=== PATIENT | female | born 1955 | race Caucasian/White ===

== ENCOUNTER → 2019-09-15 15:25 | Outpatient (CLI) | payer OTHER, SELFPAY ==
--- NOTE | ~2019-09-15 | MR_ITS ---
EXAMINATION: MR lumbar spine wo [facility] EXAM DATE: 09/15/2019 16:05 INDICATION: Low back pain, left leg pain, symptoms 6 months. TECHNIQUE: Multi-sequential, multiplanar MR images of the lumbar spine were obtained without contrast . Sagittal T1, T2, T2 fat saturation images. Axial T2 weighted images. There is no prior study for comparison. FINDINGS: There is mild to moderate disc disease T11-12, L1-2, moderate at L4-5 and L5-S1, mild at th e other visualized levels. The conus medullaris terminates at the L1/2 level and has normal signal in tensity and morphology. There is mild edema with horizontal fracture line identified through the john tral aspect of the L5 vertebral body, compression fracture but difficult to appreciate any significan t loss of vertebral body height at this level. Paraspinal soft tissue is unremarkable. There is 2 mm retrolisthesis L1 on L2, L2 on L3, 3 mm retrolisthesis L3 on L4 and 4 mm retrolisthesis L5 on S1. Level by level evaluation: T12-L1: There is a mild diffuse disc bulge. Facet arthropathy: Minimal. Neural foraminal stenosis: No stenosis. Central canal stenosis: No stenosis. L1-L2: There is a mild diffuse disc bulge. Facet arthropathy: Mild. Neural foraminal stenosis: Mild left. Central canal stenosis: Mild. L2-L3: There is a mild to moderate diffuse disc bulge. Facet arthropathy: Mild to moderate. Neural foraminal stenosis: Moderate left, mild to moderate right. Central canal stenosis: Mild to moderate. L3-L4: There is a mild to moderate diffuse disc bulge. Facet arthropathy: Mild to moderate. Neural foraminal stenosis: Mild to moderate bilateral. Central canal stenosis: Mild to moderate. L4-L5: There is a mild diffuse disc bulge. Facet arthropathy: Mild to moderate. Neural foraminal stenosis: Moderate to severe right, mild to moderate left. Central canal stenosis: Mild. L5-S1: There is a mild to moderate diffuse disc bulge. Facet arthropathy: Mild to moderate. Neural foraminal stenosis: Moderate to severe bilateral. Central canal stenosis: Mild. IMPRESSION: 1. Acute or subacute minimal compression of the L5 vertebral body. 2. Some significant lower lumbar neural foraminal stenosis. Reviewed, dictated and finalized at location A.
== END ==
PROVIDERS: Visit Provider Nurse Practitioner Family
DX: M54.5 Low back pain (principal)
CPT/HCPCS: 72148

== ENCOUNTER 2019-10-22 16:03 | Outpatient (CLI) | payer OTHER, SELFPAY | END 2019-10-22 16:04 | disposition home or self-care (01) | PROVIDERS: PCP Internal Medicine; Visit Provider Internal Medicine | DX: N39.0 Urinary tract infection, site not specified (principal) | CPT/HCPCS: 87086 ==

== ENCOUNTER → 2019-12-10 09:14 | Outpatient (CLI) | payer OTHER, SELFPAY ==
--- NOTE | ~2019-12-10 | DEXA_ITS ---
Bone Density Report Name: Mally Thomas Age: 64 Sex: Female Ethnicity: White Date of : 1955 Indication: monitoring treatment; prior fracture; hysterectomy; postmenopausal Referring Provider: Efren, James Study: Bone densitometry was performed. Exam Date: December 10, 2019 Accession number: [id number] Bone Density: Region BMD T-score Z-score Classification AP Spine (L1-L4) 1.053 0.1 1.7 Normal Femoral Neck (Left) 0.744 -0.9 0.5 Normal Total Hip (Left) 0.921 -0.2 0.9 Normal Femoral Neck (Right) 0.707 -1.3 0.1 Osteopenia Total Hip (Right) 0.927 -0.1 1.0 Normal Total Hip Mean 0.924 -0.2 1.0 Normal World Health Organization criteria for BMD impression classify patients as: Normal (T-score at or above -1.0), Osteopenia (T-score between -1.0 and -2.5), or Osteoporosis (T-score at or below -2.5). 10-year Fracture Risk: FRAX not reported because: Prior hip or vertebral fracture Treated for osteoporosis Previous Exams: Region Exam Age BMD T-score BMD Change BMD Change Date g/cm2 vs Baseline vs Previous AP Spine(L1-L4) 12/10/2019 64 1.053 0.1 0.100* 0.080* 12/22/2016 61 0.972 -0.7 0.020 0.012 08/16/2014 59 0.960 -0.8 0.007 0.007 08/05/2010 55 0.953 -0.9 Total Hip(Left) 12/10/2019 64 0.921 -0.2 0.025 0.000 12/22/2016 61 0.922 -0.2 0.025 -0.014 08/16/2014 59 0.936 -0.1 0.039* 0.039* 08/05/2010 55 0.897 -0.4 Total Hip(Right) 12/10/2019 64 0.927 -0.1 0.018 -0.034* 12/22/2016 61 0.961 0.2 0.051* 0.008 08/16/2014 59 0.953 0.1 0.043* 0.043* 08/05/2010 55 0.910 -0.3 *Denotes significance at 95% confidence level, LSC for AP Spine = 0.022 g/cm2, LSC for Total Hip = 0.027 g/cm2 Clinical Information Provided by Patient: Have had a previous hip or vertebral fracture Has had a low trauma fracture Is being treated for osteoporosis Has used the following medications: HRT (i.e. estrogen/hormone therapy), Vitamin D, Calcium Has the following medical conditions: Hysterectomy Patient maximum height was 62.3 Menopause Age: 47 Drinks caffeinated beverages Onset of menses at age 15 Number of children 1 Impression: The patient has low bone mass, based on the Right Femoral Neck T-score. The patient has risk factors, including: previous fractur
== END ==
PROVIDERS: PCP Internal Medicine; Visit Provider Anesthesiology Pain Medicine
DX: S32.059A Unspecified fracture of fifth lumbar vertebra, initial encounter for closed fracture (principal); X58.XXXA Exposure to other specified factors, initial encounter; M85.851 Other specified disorders of bone density and structure, right thigh
CPT/HCPCS: 77080

== ENCOUNTER → 2020-09-06 12:11 | Outpatient (CLI) | payer OTHER, SELFPAY ==
--- NOTE | ~2020-09-06 | XR_ITS ---
EXAMINATION: XR abdomen/kub 1V INDICATION: Urinary retention TECHNIQUE: Supine views of the abdomen were obtained on 2 radiographs. COMPARISON: None FINDINGS: There is levocurvature of the lumbar spine. Phleboliths are noted in the pelvis. No definit e urolithiasis is identified. There is a moderate volume of colonic stool. Surgical clips in the righ t upper quadrant are likely from prior cholecystectomy. The bowel gas pattern is normal. IMPRESSION: 1. No definite urolithiasis is identified. Consider stone protocol CT if there is concern for urolith iasis. Reviewed, dictated and finalized at location A. IMPRESSION: 1. No definite urolithiasis is identified. Consider stone protocol CT if there is concern for urolithiasis.
== END ==
PROVIDERS: PCP Internal Medicine; Visit Provider Internal Medicine
DX: R10.9 Unspecified abdominal pain (principal)
CPT/HCPCS: 74018

== ENCOUNTER → 2020-09-08 15:38 | Outpatient (CLI) | payer OTHER, SELFPAY ==
--- NOTE | ~2020-09-08 | US_ITS ---
EXAMINATION: US renal BI DATE: 09/08/2020 16:12 INDICATION: Bilateral flank pain, difficulty urinating TECHNIQUE: Multiple grayscale and Doppler ultrasound images of the kidneys were obtained. COMPARISON: None. FINDINGS: The right kidney measures 9.3 x 5.2 x 5.8 cm. The left kidney measures 9.6 x 5.9 x 5.4 cm. The kidneys demonstrate normal parenchymal echogenicity. There is no hydronephrosis. Prevoid bladder volume is 469 cc. Post void bladder volume is 422 cc. IMPRESSION: 1. Normal kidneys without hydronephrosis. 2. Urinary retention. Reviewed, dictated and finalized at location A.
== END ==
PROVIDERS: PCP Internal Medicine; Visit Provider Internal Medicine
DX: R10.9 Unspecified abdominal pain (principal)
CPT/HCPCS: 76775

== ENCOUNTER → 2021-04-11 16:59 | Outpatient (CLI) | payer OTHER, SELFPAY ==
--- NOTE | ~2021-04-11 | MM_ITS ---
EXAMINATION: MM screening shahid BI w drake HISTORY: Screening mammogram TECHNIQUE: Craniocaudal and mediolateral oblique 3-D tomosynthesis images were obtained and synthetic 2-D images were generated. CAD analysis was submitted and interpreted. COMPARISON: 01/28/2019, 12/28/2017, 04/24/2017 bilateral screening mammogram examinations BREAST PARENCHYMAL COMPOSITION: There are scattered areas of fibroglandular density. FINDINGS: Right breast: There is no evidence of suspicious mass, calcification, or architectural distortion to suggest malignancy in the right breast. There has been no suspicious interval change on the right. Left breast: Several left breast masses are suggested, including new approximately 6 mm circumscribed mass in the upper outer quadrant. Diagnostic left mammogram and left breast ultrasound examination a re recommended. IMPRESSION: 1. Left breast new 6 mm mass, upper outer quadrant 2. Diagnostic left mammogram and left breast ultrasound examination are recommended BI-RADS Category 0: Incomplete: Needs additional imaging evaluation. Reviewed, dictated and finalized at location A. STRIAL WASTE INSPECTOR IMPRESSION: 1. Left breast new 6 mm mass, upper outer quadrant 2. Diagnostic left mammogram and left breast ultrasound examination are recomme nded BI-RADS Category 0: Incomplete: Needs additional imaging evaluation.
== END ==
PROVIDERS: PCP Internal Medicine; Visit Provider Internal Medicine
DX: Z12.31 Encounter for screening mammogram for malignant neoplasm of breast (principal); R92.8 Other abnormal and inconclusive findings on diagnostic imaging of breast
CPT/HCPCS: 77063; 77067

== ENCOUNTER 2021-04-21 13:18 | Outpatient (CLI) | payer OTHER, SELFPAY ==
--- NOTE | ~2021-04-21 | MMUS_ITS ---
EXAMINATION: MM diagnostic shahid LT w drake, US breast LT limited HISTORY: Left breast mass on screening mammogram TECHNIQUE: Additional 3-D tomosynthesis images of the left breast were performed and synthetic 2-D im ages were generated. CAD analysis was submitted and interpreted. High resolution limited left breast ultrasound was performed. COMPARISON: 04/11/2021, 01/28/2019, 12/20/2017, 12/22/2016 FINDINGS: MAMMOGRAPHIC FINDINGS: There is an 8 mm oval, obscured, equal density mass in the middle third slightly central, slightly ou ter breast 5.5 cm from the nipple. Additional smaller masses in the middle/posterior third of the john tral breast have a stable appearance with spot compression when compared to prior mammograms. ULTRASOUND: There is a 7 mm cyst at the 12:00 location 6 cm from the nipple. There is a questionable adjacent hyp oechoic mass measuring up to 5 mm. There are round, circumscribed, hypoechoic masses at the 11:00 loc ation 5 cm from the nipple measuring up to 4 mm. IMPRESSION: 1. Probably benign left breast masses. 2. Recommend 6 month follow-up left diagnostic mammogram and ultrasound. BI-RADS category 3, probably benign findings. Reviewed, dictated and finalized at location A. RIFUGE SEPARATOR TENDER IMPRESSION: 1. Probably benign left breast masses. 2. Recommend 6 month follow-up left diagnostic mammogram and ultrasound. BI-RADS category 3, probably benign findings.
== END 2021-04-21 13:19 | disposition home or self-care (01) ==
LOC: ANHIMG 13:22
PROVIDERS: PCP Internal Medicine; Visit Provider Internal Medicine
DX: R92.8 Other abnormal and inconclusive findings on diagnostic imaging of breast (principal)
CPT/HCPCS: 76642; 77061; 77065; G0279

== ENCOUNTER → 2021-06-14 06:58 | Outpatient (CLI) | payer OTHER, SELFPAY ==
--- NOTE | ~2021-06-14 | MR_ITS ---
EXAMINATION: MR thoracic spine wo con DATE: 06/14/2021 07:44 INDICATION: Thoracic back pain. TECHNIQUE: Magnetic resonance imaging (MRI) of the thoracic spine was performed without intravenous c ontrast. Sagittal localizer T1-weighted FSE of the cervical spine was obtained. Thoracic spine sequen annamaria included sagittal T2-weighted FSE, sagittal T1-weighted FSE, sagittal T2-weighted FS FSE, and axi al T2-weighted FSE. COMPARISON: None FINDINGS: There is 19 degrees dextroscoliosis of thoracolumbar spine. Vertebral body heights are norm al. There is severe cervical and lumbar spondylosis. There is mildly decreased disc height from T4-T5 through T6-T7, moderately decreased disc height at T7-T8, mildly decreased disc height at T8-T9 and T9-T10, severely decreased disc height at T11-T12, and mildly decreased disc height at T12-L1. At T6- T7, there is a central protrusion with mild central canal stenosis. At T8-T9, there is a left central extrusion with mild central canal stenosis. At T11-T12 and T12-L1, the discs are bulging with mild c entral canal stenosis. There is multilevel facet joint osteoarthritis, severe bilaterally at C7-T1 an d on the right from T9-T10 through L1-L2 and T12-L1. On the right, there is mild neural foraminal roberto nosis at C7-T1. On the left, there is mild neural foraminal stenosis at C7-T1 and T11-T12. The spinal cord signal intensity is normal. There is a small sliding hiatal hernia. IMPRESSION: 1. Moderate thoracic spondylosis. Severe cervical and lumbar spondylosis. 2. Thoracolumbar dextroscoliosis. Reviewed, dictated and finalized at location B. MECHANIC
== END ==
PROVIDERS: PCP Internal Medicine; Visit Provider Nurse Practitioner Family
DX: M54.6 Pain in thoracic spine (principal); M47.814 Spondylosis without myelopathy or radiculopathy, thoracic region; M47.816 Spondylosis without myelopathy or radiculopathy, lumbar region; M41.85 Other forms of scoliosis, thoracolumbar region
CPT/HCPCS: 72146

== ENCOUNTER → 2021-07-22 09:59 | Outpatient (CLI) | payer OTHER, SELFPAY ==
--- NOTE | ~2021-07-22 | MR_ITS ---
EXAMINATION: MR lumbar spine wo [facility] EXAM DATE: 07/22/2021 10:44 INDICATION: Lumbago, radiculopathy . TECHNIQUE: Multi-sequential, multiplanar MR images of the lumbar spine were obtained without contrast . Sagittal T1, T2, T2 fat saturation images. Axial T2 weighted images. Comparison is made to prior examination from 09/15/2019. FINDINGS: There is moderate to severe disc disease L-1-2, L4-5 and L5-S1. There is 2-3 mm retrolisthe sis L2 on L3 and L3 on L4, 4 mm retrolisthesis L5 on S1. Mild to moderate upper lumbar dextroscoliosi s. There is edema of the L1-2 endplates at the left, concave side of the scoliosis, probably subacute . On prior study there was less scoliosis, less disc disease in the L1 and L2 compressions were not p resent. Paraspinal soft tissue is unremarkable. Level by level evaluation: T12-L1: There is a mild diffuse disc bulge. Facet arthropathy: Mild. Neural foraminal stenosis: No stenosis. Central canal stenosis: No stenosis. L1-L2: There is a large diffuse disc bulge. Superimposed large left central protrusion indenting the conus medullaris and causing moderate central canal stenosis. Facet arthropathy: Mild bilateral. Neural foraminal stenosis: Moderate left. Central canal stenosis: Severe left lateral recess, overall moderate Moderate. Minimal CSF space surr ounding traversing nerve roots. L2-L3: There is a moderate diffuse disc bulge. Facet arthropathy: Mild to moderate. Neural foraminal stenosis: Mild to moderate bilateral. Central canal stenosis: Mild. L3-L4: There is a moderate diffuse disc bulge. Facet arthropathy: Mild to moderate. Neural foraminal stenosis: Mild to moderate bilateral. Central canal stenosis: Mild. L4-L5: There is a mild to moderate diffuse disc bulge. Facet arthropathy: Moderate. Neural foraminal stenosis: Moderate right, mild to moderate left. Central canal stenosis: Mild. L5-S1: There is a mild to moderate diffuse disc bulge. Facet arthropathy: Mild. Neural foraminal stenosis: Moderate bilateral. Central canal stenosis: Mild. IMPRESSION: 1. Significant progression in L1-2 disc disease with large disc bulge and superimposed central protr usion causing severe left lateral recess stenosis and overall moderate central canal stenosis. 2. Dextroscoliosis with development of mild compression fractures at the L1-2 endplates along their concave side. 3. Moderate multilevel neural foraminal stenosis. Reviewed, dictated and finalized at location A. LANE TECHNICIAN IMPRESSION: 1. Significant progression in L1-2 disc disease with large disc bulge and supe rimposed central protrusion causing severe left lateral recess stenosis and ove rall moderate central canal stenosis. 2. Dextroscoliosis with development of mild compression fractures at the L1-2 endplates along their concave side. 3. Moderate multilevel neural foraminal stenosis.
== END ==
PROVIDERS: PCP Internal Medicine; Visit Provider Nurse Practitioner Family
DX: M54.16 Radiculopathy, lumbar region (principal); M51.36 Other intervertebral disc degeneration, lumbar region
CPT/HCPCS: 72148

== ENCOUNTER → 2021-11-16 08:11 | Outpatient (CLI) | payer OTHER, SELFPAY ==
--- NOTE | ~2021-11-16 | MMUS_ITS ---
EXAMINATION: MM diagnostic shahid LT w drake, US breast LT limited HISTORY: Follow-up left breast mass TECHNIQUE: Additional 3-D tomosynthesis images of the left breast were performed and synthetic 2-D im ages were generated. CAD analysis was submitted and interpreted. High resolution Limited left breast ultrasound was performed. COMPARISON: Comparison to multiple prior studies sequentially, with oldest reviewed study dated 12/28. BREAST PARENCHYMAL COMPOSITION: Breast composed of scattered areas of fibroglandular density FINDINGS: MAMMOGRAPHIC FINDINGS: There are no suspicious masses, calcifications or architectural distortion in either breast to sugges t malignancy. ULTRASOUND: Limited left breast ultrasound: At 12:00, 4 cm from the nipple there is an oval hypoechoic mass measu ring 5 mm without posterior features or internal vascularity. Parallel orientation. This mass is not significantly changed from prior examination. At 1:00, 4 cm from the nipple, there is a small cluster of microcysts. At 3:00, 4 cm from the nipple there is a 3 mm cyst. IMPRESSION: 1. Probable benign left breast mass at 12:00, 4 cm from the nipple. 2. Recommend 6 month follow-up left breast ultrasound and bilateral mammogram. BI-RADS category 3, probably benign findings. Reviewed, dictated and finalized at location A. IMPRESSION: 1. Probable benign left breast mass at 12:00, 4 cm from the nipple. 2. Recommend 6 month follow-up left breast ultrasound and bilateral mammogram. BI-RADS category 3, probably benign findings.
== END ==
PROVIDERS: PCP Internal Medicine; Visit Provider Internal Medicine
DX: R92.8 Other abnormal and inconclusive findings on diagnostic imaging of breast (principal)
CPT/HCPCS: 76642; 77061; 77065; G0279

== ENCOUNTER 2022-07-12 13:59 | Outpatient (CLI) | payer OTHER, SELFPAY ==
--- NOTE | ~2022-07-12 | MMUS_ITS ---
EXAMINATION: MM diagnostic shahid BI w drake, US breast LT limited HISTORY: Six-month follow-up of probable benign left breast mass at 12:00 4 cm from nipple TECHNIQUE: ML, MLO and CC 3-D tomosynthesis images of were performed and synthetic 2-D images were ge nerated. CAD analysis was submitted and interpreted. High resolution targeted left 12:00 breast ultra sound was performed. COMPARISON: 11/16/2021 diagnostic left mammogram and limited left breast ultrasound 04/21/2021 diagnostic left mammogram and limited left breast ultrasound 04/11/2021 bilateral screening mammogram BREAST PARENCHYMAL COMPOSITION: There are scattered areas of fibroglandular density. FINDINGS: MAMMOGRAPHIC FINDINGS: No suspicious mass or architectural distortion, malignant calcification, skin thickening or retractio n or significant new or developing density is detected. ULTRASOUND: 12:00 4 cm from nipple: 2.7 x 4 x 4.7 mm parallel circumscribed hypoechoic lesion without internal va scularity or posterior shadowing is again noted. The sonographic features suggest benign process. Ano ther six-month targeted left breast ultrasound follow-up is recommended. IMPRESSION: 1. Probable benign finding at 12:00 4 cm from nipple 2. Targeted 6 month left breast 12:00 ultrasound follow-up for 7 minutes from nipple is recommended BI-RADS category 3, probably benign findings. Reviewed, dictated and finalized at location A. IDE B2B SALES IMPRESSION: 1. Probable benign finding at 12:00 4 cm from nipple 2. Targeted 6 month left breast 12:00 ultrasound follow-up for 7 minutes from n ipple is recommended BI-RADS category 3, probably benign findings.
== END 2022-07-12 14:00 | disposition home or self-care (01) ==
LOC: ANHIMG 14:03
PROVIDERS: PCP Internal Medicine; Visit Provider Internal Medicine
DX: N63.20 Unspecified lump in the left breast, unspecified quadrant (principal)
CPT/HCPCS: 76642; 77062; 77066; G0279

== ENCOUNTER 2022-11-20 14:25 | Outpatient (CLI) | payer OTHER, SELFPAY ==
--- NOTE | ~2022-11-20 | DEXA_ITS ---
Bone Density Report Name: ANGELA HICKS Age: 67 Sex: Female Ethnicity: White Date of : 1955 Indication: postmenopausal; screening for osteoporosis; height loss; asthma or emphysema; hysterectomy; Referring Provider: NYA PRASAD Study: Bone densitometry was performed. Exam Date: November 20, 2022 Accession number: [id number] Bone Density: Region BMD T-score Z-score Classification AP Spine(L3, L4) 1.182 0.7 2.7 Normal Femoral Neck (Left) 0.763 -0.8 0.8 Normal Total Hip (Left) 0.902 -0.3 0.9 Normal Femoral Neck (Right) 0.731 -1.1 0.5 Osteopenia Total Hip (Right) 0.914 -0.2 1.0 Normal Total Hip Mean 0.908 -0.3 1.0 Normal World Health Organization criteria for BMD impression classify patients as: Normal (T-score at or above -1.0), Osteopenia (T-score between -1.0 and -2.5), or Osteoporosis (T-score at or below -2.5). 10-year Fracture Risk(1): Major Osteoporotic Fracture 8.0% Hip Fracture 0.6% Reported Risk Factors: [place] (), Neck BMD=0.731, BMI=31.4 (1) FRAX(R) Version 3.08. Fracture probability calculated for an untreated patient. Fracture probability may be lower if the patient has received treatment. Clinical Information Provided by Patient: Has used the following medications: Vitamin D, Calcium Has the following medical conditions: Asthma or Emphysema, Hysterectomy Patient maximum height was 63 Menopause Age: 56 Drinks caffeinated beverages Onset of menses at age 15 Number of children 1 Impression: The patient has low bone mass, based on the Right Femoral Neck T-score. The patient has an estimated ten-year risk of hip fracture of 0.6% and an estimated ten-year risk of major fracture of 8%, based on the WHO FRAX algorithm. Discussion: BONE DENSITY IS LOW AT ONE OR MORE SKELETAL SITES. This patient's lowest T-score is low at one or more skeletal sites. It meets the World Health Organization's (WHO) criteria for ?low bone mass? (T-score between -1.0 and -2.5). The patient's 10-year risk of fracture as calculated by FRAX is less than the threshold where pharmacological therapy is recommended by the National Osteoporosis Foundation (NOF). However, all treatment decisions require clinical judgment and consideration of individual patient factors, including patient preferences, comorbidities, previous drug use, risk factors not captured in the FRAX model (e.g., frailty, falls, vitamin D deficiency, increased bone turnover, interval significant decline in bone density) and possible under or overestimation of fracture risk by FRAX. The patient should follow a healthful lifestyle (good nutrition with adequate calcium and vitamin D, and appropriate weight-bearing exercise). Follow-Up: Consider repeating this study in 2 to 3 years to reassess this patient's status, o
== END 2022-11-20 14:26 | disposition home or self-care (01) ==
PROVIDERS: PCP Nurse Practitioner Family; Visit Provider Nurse Practitioner Family
DX: Z13.820 Encounter for screening for osteoporosis (principal); M85.851 Other specified disorders of bone density and structure, right thigh
CPT/HCPCS: 77080

== ENCOUNTER 2022-12-19 10:35 | Outpatient (CLI) | payer OTHER, SELFPAY ==
--- NOTE | ~2022-12-19 | US_ITS ---
Renal-Bladder ultrasound Clinical History: Urinary retention Technique: Real-time sonographic imaging of the kidneys and urinary bladder was performed. Findings: The right kidney measures 9.7 cm in length and the left kidney measures 10.9 cm. There is n o hydronephrosis or renal calculus identified. Renal cortical echogenicity is within normal limits. N o renal mass lesion is identified. The urinary bladder is moderately distended at the time of this exam. No intraluminal echoes are iden tified. No abnormal wall thickening is seen. Prevoid urinary bladder volume is 304 mL. Post void resi dual of 4 mL noted. Impression: Unremarkable ultrasound of the kidneys and urinary bladder. Reviewed, dictated and finalized at location M. Impression: Unremarkable ultrasound of the kidneys and urinary bladder.
--- NOTE | ~2022-12-19 | XR_ITS ---
Supine and upright views of the abdomen Clinical history: Urinary retention COMPARISON: 09/06/2020 Findings: Bowel gas pattern is nonspecific. No evidence for obstruction or free air. No abnormal mass lesion or calcification is seen. 32 degrees dextroscoliosis of the thoracolumbar spine present, apex at L1-L2. Impression: No significant soft tissue abnormality is seen. 32 degrees dextroscoliosis of the thoracolumbar spine. Reviewed, dictated and finalized at location . Impression: No significant soft tissue abnormality is seen. 32 degrees dextroscoliosis of the thoracolumbar spine.
== END 2022-12-19 10:36 | disposition home or self-care (01) ==
LOC: ANHIMG 10:40
PROVIDERS: PCP Family Medicine; Visit Provider Nurse Practitioner Family
DX: R33.9 Retention of urine, unspecified (principal)
CPT/HCPCS: 74018; 76775

== ENCOUNTER → 2023-01-17 07:40 | Outpatient (CLI) | payer OTHER, SELFPAY ==
--- NOTE | ~2023-01-17 | US_ITS ---
US breast LT limited 01/17/2023 08:04 Indication: Follow-up left breast masses Procedure: High-resolution Limited ultrasound of the left breast Comparison: Comparison to multiple prior studies sequentially, with oldest reviewed study dated 04/03. Findings: At 11-12:00 position, 4 cm from the nipple, there is an oval hypoechoic mass measuring 5 mm with low-level internal echoes. Also at 11-12:00 there is a hypoechoic mass with internal echogenici ty measuring 4 mm with enhanced or transmission parallel orientation. No internal vascularity in eith er mass. Given the lack of interval change these are most likely benign. Impression: 1: Probable benign left breast masses. BI-RADS CATEGORY 3-PROBABLY BENIGN FINDING RECOMMENDATION: Six-month follow-up diagnostic bilateral mammogram and Limited left breast ultrasound . Reviewed, dictated and finalized at location A. Impression: 1: Probable benign left breast masses. BI-RADS CATEGORY 3-PROBABLY BENIGN FINDING RECOMMENDATION: Six-month follow-up diagnostic bilateral mammogram and Limited left breast ultrasound.
== END ==
PROVIDERS: PCP Nurse Practitioner Family; Visit Provider Nurse Practitioner Family
DX: R92.8 Other abnormal and inconclusive findings on diagnostic imaging of breast (principal)
CPT/HCPCS: 76642

== ENCOUNTER 2023-06-11 06:57 | Outpatient (CLI) | payer OTHER, SELFPAY ==
--- NOTE | ~2023-06-11 | MR_ITS ---
MRI of the thoracic spine Clinical History: Radiculopathy Technique: Axial T2-weighted and gradient images, and sagittal T1-weighted, T2-weighted, and STIR jose alfredo ges were acquired. Findings: There is no fracture or subluxation of the thoracic spine. Vertebral bodies maintain normal height and line. No suspicious bone marrow signal abnormality seen. No significant disc bulge or herniation seen at any thoracic level. No spinal canal stenosis or cord compression. There is moderate to advanced facet arthropathy from T9-T10 through the remainder of the lower thoracic spine. No abnormal signal seen in the spinal cord. Paravertebral soft tissues are unremarkable. Impression: Facet arthropathy at the lower thoracic spine, otherwise no significant abnormality seen. Reviewed, dictated and finalized at [facility]. L PLATE PRINTER Impression: Facet arthropathy at the lower thoracic spine, otherwise no significant abnorma lity seen.
--- NOTE | ~2023-06-11 | MR_ITS ---
MRI of the lumbar spine Clinical History: Radiculopathy Technique: Axial T2-weighted images, and sagittal T1-weighted, T2-weighted, and and T2 fat-sat images were acquired. COMPARISON: 07/22/2021 Findings: No fracture identified. There is minimal grade 1 retrolisthesis of L1 over L2, and L2 over L3. There is extensive reactive marrow edema about the L1-L2 and L4-L5 disc spaces due to underlying degenerative disc disease. At L1-L2, there is advanced degenerative disc narrowing with mild disc bulge and mild facet arthropat hy. No central canal stenosis. There is severe left neural foraminal narrowing. Right neural foramen preserved. At L2-L3, there is diffuse disc bulge with mild to moderate facet arthropathy. No central canal steno sis. There is severe left neural foraminal narrowing, and moderate right neural foraminal narrowing. L3-L4, there is diffuse disc bulge and moderate facet arthropathy. There is right lateral recess sten osis, with severe right neural foraminal narrowing. Left neural foramen preserved. No central canal s tenosis. At L4-L5, there is minimal disc bulge with moderate facet arthropathy. No central canal stenosis. The re is mild to moderate left neural foraminal narrowing, and severe right neural foraminal narrowing. At L5-S1, there is severe disc narrowing, with moderate to advanced facet arthropathy. No central can al stenosis. There is severe bilateral neural foraminal narrowing. Paravertebral soft tissues are unremarkable. Impression: Advanced degenerative spondylosis, as detailed above, with multilevel significant neural foraminal na rrowing. Reviewed, dictated and finalized at [facility]. IAC CARE NURSE Impression: Advanced degenerative spondylosis, as detailed above, with multilevel significa nt neural foraminal narrowing.
== END 2023-06-11 06:58 ==
PROVIDERS: PCP Family Medicine; Visit Provider Nurse Practitioner Family
DX: M47.26 Other spondylosis with radiculopathy, lumbar region (principal); M47.24 Other spondylosis with radiculopathy, thoracic region
CPT/HCPCS: 72146; 72148

== ENCOUNTER 2023-11-11 10:39 | Outpatient (CLI) | payer OTHER, SELFPAY ==
--- NOTE | 2023-11-11 11:00 | ECG_ITS ---
Test Date: 2023-11-11 11:07:50 Measurements Intervals [place] Rate: 70 P: 35 DE: 170 QRS: -1 QRSD: 77 T: 16 QT: 388 QTc: 421 Interpretive Statements SINUS RHYTHM LOW QRS VOLTAGE IN PRECORDIAL LEADS [QRS DEFLECTION < 1.0 mV IN CHEST LEADS] POOR R-WAVE PROGRESSION BORDERLINE ECG No previous ECG available for comparison Electronically Signed On 11-11-2023 13:07:23 CDT by Maxi Beal M.D.
[2023-11-11 12:35] LABS: Basophils Percent Auto 0.3 % (0.2-1.2); Eosinophils Absolute Auto 0.1 K/mm3 (0-0.3); Eosinophils Percent Auto 1.4 % (0-4.4); Hemoglobin 13.9 g/dL (12.0-15.0); Immature Granulocyte Absolute 0.03 K/mm3 (0.00-0.031); Immature Granulocyte Percent A 0.4 % (0-0.5); Lymphocytes Absolute Auto 2.42 K/mm3 (0.9-3.2); Lymphocytes Percent Auto 30.3 % (18.3-44.2); Mean Corpuscular HGB Conc 34.8 g/dl (32-36); Mean Corpuscular Hemoglobin 31.7 pg (26-34); Mean Corpuscular Volume 91.1 fl (80-100); Mean Platelet Volume 9.6 fl (7.4-10.4); Monocytes Absolute Auto 0.6 K/mm3 (0.1-0.6); Monocytes Percent Auto 7.9 % (2.6-8.5); Neutrophils Absolute Auto 4.8 K/mm3 (1.3-6.7); Neutrophils Percent Auto 59.7 % (45.5-73.1); Platelet Count Result 168 k/mm3 (150-375); Red Blood Count 4.39 M/mm3 (4.2-5.4); Red Cell Distribution Width 12.8 % (11.5-14.5)
[2023-11-11 12:36] LABS: Appearance Urine Cloudy (Clear); Bacteria Urine 3+ /hpf; Bilirubin Urine Negative (Negative); Blood Urine Negative (Negative); Color Urine Yellow (Yellow); Glucose Urine UA Negative (Negative); Ketones Urine Negative (Negative); Leukocyte Esterase Ur 2+ LEU/UL (Negative); Nitrate Urine Negative (Negative); Protein Urine Negative (Negative); Specific Grav Ur 1.009 (1.001-1.035); Squamous Epithelial Cell Urine Moderate /hpf (Few); Urobilinogen Urine 0.2 mg/dL (<2.0); pH Urine 7.5 (5.0-9.0)
[2023-11-11 12:47] LABS: Add Urine Microscopic? YES
[2023-11-11 12:52] LABS: Alanine Aminotransferase 65 U/L (6-35); Alkaline Phosphatase 69 U/L (38-126); Aspartate Amino Transferase 57 U/L (14-36); Bilirubin,Total 0.6 mg/dL (0.2-1.3)
[2023-11-11 12:56] LABS: Alanine Aminotransferase 65 U/L (6-35); Alkaline Phosphatase 70 U/L (38-126); Anion Gap 4 mmol/L (4-12); Aspartate Amino Transferase 55 U/L (14-36); Bilirubin,Total 0.6 mg/dL (0.2-1.3); Blood Urea Nitrogen 9 mg/dL (7-17); CRP < 0.5 mg/dL (<1.0); Calcium 8.8 mg/dL (8.4-10.2); Carbon Dioxide 30 mmol/L (22-30); Chloride 103 mmol/L (98-107); Estimated Glomerular Filt Rate > 60; Glucose 82 mg/dL (65-110); Potassium 3.3 mmol/L (3.4-5.0); Sodium 137 mmol/L (137-145)
[2023-11-11 13:22] LABS: Hepatitis B Surface Antigen Negative (Negative)
[2023-11-11 13:28] LABS: HAV RESULT Negative (Negative); Hepatitis B Core IgM Result Negative (Negative)
[2023-11-11 13:37] LABS: Erythrocyte Sedimentation Rate 35 mm/hr (0-20)
[2023-11-11 13:39] LABS: Hepatitis C Virus Antibody Negative (Negative)
== END 2023-11-11 10:40 | disposition home or self-care (01) ==
PROVIDERS: PCP Family Medicine; Referring Provider Nurse Practitioner Family; Visit Provider Nurse Practitioner Family
DX: R74.8 Abnormal levels of other serum enzymes (principal); Z01.818 Encounter for other preprocedural examination; R94.31 Abnormal electrocardiogram [ECG] [EKG]
CPT/HCPCS: 36415; 80053; 80074; 80076; 81001; 85025; 85652; 86140; 87086; 93005

== ENCOUNTER 2024-11-04 12:20 | Outpatient (CLI) | payer OTHER, SELFPAY ==
--- OUTSIDE RECORDS SUMMARY | 2024-11-04 12:28 | XMS_ITS | Referral Summary ---
Author Organization [facility] Address [address] [place] [address] Care Team Providers Care Waterproof Bag Sewer Name Role Phone LutherOrvilleparvin GERONIMO Primary Care Provider [phone] Lino Pabon MD Unavailable [phone] Maryam Grey MD Unavailable Allergies Active Allergy Reactions Criticality Noted Date Comments No Known Allergies Other (See comments) Low Reaction: Medications calcium carbonate-vitam in D3 1,500 mg (600mg elemental) -800 unit per tablet Acti ve cholestyramine (QUESTRAN) 4 gram packet 8 Active estradiol (ESTRACE) 1 mg tablet 8 Active loperamide (IMODIUM A-D) 2 mg capsule as needed Active levothyroxine (SYNTHROID) 75 mcg tablet fishing tool technician oil well before breakfast 8 Active losartan-hydroC HLOROthiazide (HYZAAR) 50-12.5 mg per tablet 8 Active oxyCODONE-aceta minophen (PERCOCET) 10-325 mg per tabletIndicatio ns:Pain every 6 (six) hours as needed 8 Active atorvastatin (LIPITOR) 40 mg tablet Take 40 mg by mouth daily 1 Active cholecalciferol (VITAMIN D-3) 50,000 unit capsule Take 50,000 Units by mouth once a week Active omeprazole magnesium (PRILOSEC ORAL) Take by mouth daily Active L gasseri/B bifidum/B longum ([employer] HEALTH ORAL) Take by mouth daily Active amitriptyline (ELAVIL) 25 mg tablet daily 1 Active topiramate (TOPAMAX) 25 mg tablet Take 25 mg by mouth 2 (two) times a day Active nortriptyline (PAMELOR) 25 mg capsule Take 25 mg by mouth daily Active gabapentin (NEURONTIN) 600 mg tablet Take 600 mg by mouth 3 (three) times a day Active Active Problems Problem Noted Date Diagnosed Date Functional diarrhea 12/22/2020 Osteoarthritis of glenohumeral joint 08/15/2015 Pain in shoulder 10/29/2014 Social History Tobacco Use Types Packs/Day Years Used Date Smoking Tobacco: Never Alcohol Use Standard Drinks/Week Comments Yes 0 (1 standard drink = 0.6 oz pur e alcohol) Comments Unknown Sex and Gender Information Value Date Recorded Sex Assigned at Not on file 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 Gender Identity Not on file Sexual Orientation Not on file Last Filed Vital Signs Vital Sign Reading Time Taken Comments Blood Pressure 137/85 12/22/2020 2:25 PM CDT Pulse 92 12/22/2020 2:25 PM CDT Temperature 36.3 C (97.3 F) 12/22/2020 2:25 PM CDT Respiratory Rate - - Oxygen Saturation 95% 12/22/2020 2:25 PM CDT Inhaled Oxygen Concentration - - Weight 78.9 kg (174 lb) 12/22/2020 2:25 PM CDT Height 157.5 cm (5' 2) 12/22/2020 2:25 PM CDT Body Mass Index 31.83 12/22/2020 2:25 PM CDT Plan of Treatment Not on file Insurance CHOICE PLUS Care Teams Waterproof Bag Sewer Relationship Specialty Start Date End Date Gui Sloan DO PCP - General Internal Medicine 10/17/20 Lino Pabon MD [id number] [place] [address] Surgeon Colon and Rectal Surgery 02/09/21 Maryam Grey MD [id number] [place] [address] Semiconductor Wafers Saw Operator Gastroenterology 02/09/21
--- OUTSIDE RECORDS SUMMARY | 2024-11-04 12:28 | XMS_ITS | Clinical Summary ---
Author Organization [employer] [address] Address [address] [place] [address] Care Team Providers Care Core Stripper Name Role Phone Gui Sloan Primary Care Provider [phone] Allergies No known active allergies Medications losartan-hydroCH LOROthiazide (HYZAAR) 50-12.5 mg tablet Take 1 Tablet by mouth daily. Active levothyroxine 88 mcg tablet Take 88 mcg by mouth daily lithographic stripper. Active oxyCODONE-acetam inophen (PERCOCET) 10-325 mg Tablet Take 1 Tablet by mouth every 4 hours as needed for Pain, Severe. Active ergocalciferol (VITAMIN D2) 50,000 unit capsule Take 50,000 Units by mouth. Active estradioL (ESTRACE) 1 mg tablet Take 1 mg by mouth daily. Active pravastatin (PRAVACHOL) 20 mg tablet Take 20 mg by mouth daily with supper. Active gabapentin (NEURONTIN) 600 mg tablet Take 600 mg by mouth 3 times daily. Active topiramate (TOPAMAX) 25 mg tablet Take 25 mg by mouth 2 times daily. Active nortriptyline (PAMELOR) 25 mg capsule Take 25 mg by mouth daily at bedtime. Active loperamide (IMODIUM) 2 mg capsule Take 2 mg by mouth every 3 hours as needed for Diarrhea/Lo ose Stools. Active L gasseri/B bifidum/B longum ([employer] HEALTH ORAL) Take by mouth. Active calcium as carbonate (CALTRATE) 1,500 mg (600 mg elemental) Tablet Take by mouth. Active Active Problems Problem Noted Date Diagnosed Date Lumbar spondylosis 02/16/2020 Family History Relation Name Status Comments Father Mother Social History Tobacco Use Types Packs/Day Years Used Date Smoking Tobacco: Never Alcohol Use Standard Drinks/Week Comments Yes 0 (1 standard drink = 0.6 oz pur e alcohol) Comments Unknown Sex and Gender Information Value Date Recorded Sex Assigned at Not on file Legal Sex Female 11:27 AM CDT Gender Identity Not on file Sexual Orientation Not on file Last Filed Vital Signs Vital Sign Reading Time Taken Comments Blood Pressure - - Pulse - - Temperature 36.9 C (98.4 F) 02/16/2020 1:42 PM CDT Respiratory Rate - - Oxygen Saturation - - Inhaled Oxygen Concentration - - Weight 77.1 kg (170 lb) 02/16/2020 1:42 PM CDT Height 157.5 cm (5' 2) 02/16/2020 1:42 PM CDT Body Mass Index 31.09 02/16/2020 1:42 PM CDT Plan of Treatment Health Maintenance Due Date Last Done Comments DTAP/TDAP/TD VACCINES (1 - Tdap) 01/02/1976 BREAST CANCER SCREENING 1997 COLORECTAL SCREENING 2002 Colorectal Cancer Screening 2002 FIT-DNA Q 3 years 2002 FIT/FOBT Q 1 year 2002 Flex Sig/CT Colonography Q 5 years 2002 PNEUMOCOCCAL VACCINE 50+ YEARS (1 of 1 - PCV) 01/02/20 07 ZOSTER VACCINE (1 of 2) 2007 INFLUENZA VACCINE (#1) 2024 OSTEOPOROSIS SCREENING 01/20/2025 01/21/2020 RSV VACCINE (60+ or ) (1 - 1-dose 75+ series) 01/02/2032 Procedures Procedure Name Priority Date/Time Associated Diagnosis Comments DEXA PRIOR STUDY Routine 01/21/2020 4:23 PM CDT DDD (degenerative disc disease), lumbar from Last 3 Months or Most Recently Relevant to Health Maintenance Results * DEXA PRIOR STUDY (01/21/2020 4:23 PM CDT) Narrative 01/21/2020 4:23 PM CDT This exam was auto finalized to allow images to be scanned to PACS. us External Provider [facility] DIAGNOSTIC IMAGING ORDERA BLES Final Result from Last 3 Months or Most Recently Relevant to Health Maintenance Insurance Care Teams Core Stripper Relationship Specialty Start Date End Date Gui Sloan DO [address] [place] [id number] PCP - General Internal Medicine 01/08/20
--- OUTSIDE RECORDS SUMMARY | 2024-11-04 12:28 | XMS_ITS | Clinical Summary ---
Author Organization [facility] Address [address] [place] [address] Care Team Providers Care Under Ground Miner Name Role Phone LutherGui Primary Care Provider [phone] Lino Pabon MD Unavailable [phone] Maryam Grey MD Unavailable Allergies Active Allergy Reactions Criticality Noted Date Comments No Known Allergies Other (See comments) Low Reaction: Medications calcium carbonate-vitam in D3 1,500 mg (600mg elemental) -800 unit per tablet Acti ve cholestyramine (QUESTRAN) 4 gram packet 8 Active estradiol (ESTRACE) 1 mg tablet 8 Active loperamide (IMODIUM A-D) 2 mg capsule as needed Active levothyroxine (SYNTHROID) 75 mcg tablet standards engineer before breakfast 8 Active losartan-hydroC HLOROthiazide (HYZAAR) [...] mouth daily Active L gasseri/B bifidum/B longum ([employer] HEALTH ORAL) Take by mouth daily Active [...] glenohumeral joint 08/15/2015 Pain in shoulder 10/29/2014 Surgical History Surgery Date Site/Laterality Comments SHOULDER ARTHROSCOPY 06/03/2007 - 06/02/2008 Right Arthroscopy shoulder HYSTERECTOMY 06/03/2010 - 06/02/2011 Hysterectomy CHOLECYSTECTOMY 06/14/2003 COLONOSCOPY 07/14/2020 Medical History Medical History Date Comments Hx Other Medical 2011 tumor removed Gastroesophageal reflux disease GERD Hypertension Hypertension Asthma Thyroid disease Family History Medical History Relation Name Comments Cancer Brother Diabetes Other 1 Family history of Diabetes mellitus; Hypertension Other 2 Family history of Hypertension; Osteoarthritis Other 3 Family histor y of Osteoarthritis; Cancer Sister Relation Name Status Comments Brother Other 1 Other 2 Other 3 Sister Social History Tobacco Use Types Packs/Day Years Used Date Smoking Tobacco: Never Alcohol Use Standard Drinks/Week Comments Yes 0 (1 standard drink = 0.6 oz pur e alcohol) Comments Unknown Sex and Gender Information Value Date Recorded Sex Assigned at Not on file 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
--- OUTSIDE RECORDS SUMMARY | 2024-11-04 12:28 | XMS_ITS | CONTINUITY OF CARE DOCUMENT ---
Author Name hanny gamino Address Unknown Organization [facility] Address [address] [place] [address] [address] [place] [address] Phone [phone] Care Team Providers Care Scalehouse Attendant Name Role Phone MAICO SYKES MD Unavailable [phone] INSURANCE PROVIDERS Payer name Policy type / Coverage type [facility] green party ID [facility] Other [id number]
--- OUTSIDE RECORDS SUMMARY | 2024-11-04 12:28 | XMS_ITS | Continuity of Care Document ---
Author Organization [facility] Address [address] [place] [address] [address] [place] [address] Phone Care Team Providers Care Automotive Sales Professional Name Role Phone Luis Lynch Unavailable Unavailable Advance Directives Directive Yes / No Effective Date File Name No Information Encounters Encounter Description Practice Location Reason(s) For Visit Diagnoses Date Provider Providers Copied on Encounter [facility], [address] [place] [address] [address], [place], [place], [id number], [place] tel:[phone] [facility] No Information 0 [phone] Doisy Luis. [address] [facility] , [address], [place], [address], [place]. tel:[phone] Family History Family Member Type Diagnosis Age At Onset No Information Payers Payer name Insurance type Covered green party ID Authoriza tion(s) No Information Social History Type Description Quantity Date Captured Comments Sex Female Smoking Status No Information Chief Complaint And Reason For Visit No Information Reason For Referral Reason For Referral No Information History Of Present Illness Encounter Date Complaint History Of Prese nt Illness No Information Functional Status Date Functional Assessmen t No Information Instructions Date Instruction Additional Infor mation No Information Assessments Type Assessment Date No Information Patient Care Teams Name Effective Dates (start - stop) Status Members No Information
[2024-11-04 15:06] LABS: Anion Gap 6 mmol/L (4-12); Blood Urea Nitrogen 13 mg/dL (7-17); Calcium 9.5 mg/dL (8.4-10.2); Carbon Dioxide 32 mmol/L (22-30); Chloride 102 mmol/L (98-107); Estimated Glomerular Filt Rate > 60; Glucose 78 mg/dL (65-110); Potassium 3.4 mmol/L (3.4-5.0); Sodium 140 mmol/L (137-145)
== END 2024-11-04 12:21 | disposition home or self-care (01) ==
LOC: ANHSURGERY 12:25
PROVIDERS: Anesthesiology; PCP Nurse Practitioner Family; Visit Provider Surgery
DX: Z51.81 Encounter for therapeutic drug level monitoring (principal); Z79.899 Other long term (current) drug therapy
CPT/HCPCS: 36415; 80048

== ENCOUNTER 2024-11-09 02:23 | Day surgery (SDC) | payer OTHER, SELFPAY ==
[2024-10-27 15:30] VITALS: BMI 29.4
--- NOTE | 2024-10-27 16:00 | PC.NURSE ---
Report to the Outpatient Waiting Room, entrance under the green pavilion located off [facility], at time ___12:00PM____ on date ___11/09/24____. Planned Procedure Time: ___2:00PM .? Time changes happen often and if your time is changed the preop area will call you the afternoon before. - You and your visitor will be asked to self-screen and do not enter if you have any COVID symptoms. Please call surgeon if you need to reschedule. - A mask is optional within the hospital at this time. Patients may have clear liquids (water, carbonated beverages, clear teas, apple juice) until 3 hours prior to surgery (11:00AM) with a maximum of 20 ounces. - No food from midnight until time of surgery and no smoking, or chewing tobacco (or any form of nicotine). No chewing gum, candy or mints. Take only the following medications with a SIP of water on the morning of surgery: __LEVOTHYROXINE, GABAPENTIN, MORPHINE DO NOT STOP ANY OF YOUR OTHER PRESCRIPTION MEDICATIONS PRIOR TO SURGERY EXCEPT THE FOLLOWING Hold all vitamins and supplements for 3 days per anesthesiologist.LAST DOSE 11/05/24. Please no make-up, nail libyan, hairspray, perfume, deodorant, or body powder the day of surgery.? No jewelry (including any body piercings) or valuables the day of surgery, leave them at home.? Please take a shower or bath the night before, or the morning of, surgery with an antibacterial soap.? Wear comfortable, loose fitting clothing.? - Jewelry must be removed prior to entering the operating room.? Rings and piercings that are not removed may be cut off. - The hospital will not accept responsibility for valuables.? - Please leave all valuables, including medications, at home the day of surgery. If you are going home after surgery, a licensed frontload driver must drive you home.? - NO public transportation without another adult if you receive anesthesia. - We recommend that an adult stay with you for 24 hours following discharge. - We also recommend that you do not drive, make important decision, drink alcoholic beverages, or take any drugs that were not prescribed by your health care provider for at least 24 hours after your discharge time. Follow any additional instructions given to you from your surgeon. Telephone instructions given to ___PATIENT and asked if any additional questions and then verbalized understanding. Patient advised to call surgeon office or pre surgery nurse liaison [phone] if any additional questions.
--- OUTSIDE RECORDS SUMMARY | 2024-11-09 02:26 | XMS_ITS | Referral Summary ---
Author Organization [facility] Address [address] [place] [address] Care Team Providers Care Tank Hoop Bender Name Role Phone LutherOrvilleparvin GERONIMO Primary Care Provider [phone] Lino Pabon MD Unavailable [phone] Maryam Grey MD Unavailable [phone] Allergies Active Allergy Reactions Criticality Noted Date Comments No Known Allergies Other (See comments) Low Reaction: Medications calcium carbonate-vitam in D3 1,500 mg (600mg elemental) -800 unit per tablet Acti ve cholestyramine (QUESTRAN) 4 gram packet 8 Active estradiol (ESTRACE) 1 mg tablet 8 Active loperamide (IMODIUM A-D) 2 mg capsule as needed Active levothyroxine (SYNTHROID) 75 mcg tablet speech therapist early intervention before breakfast 8 Active losartan-hydroC HLOROthiazide (HYZAAR) [...] mouth daily Active L gasseri/B bifidum/B longum ([employer] HEALTH ORAL) Take by mouth daily Active [...] on file 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
--- OUTSIDE RECORDS SUMMARY | 2024-11-09 02:26 | XMS_ITS | Continuity of Care Document ---
Author Organization [facility] Address [address] [place] [address] [address] [place] [address] Phone Care Team Providers Care Pinsetter Mechanic Helper Name Role Phone Luis Lynch Unavailable Unavailable Advance Directives Directive Yes / No Effective Date File Name No Information Encounters Encounter Description Practice Location Reason(s) For Visit Diagnoses Date Provider Providers Copied on Encounter [facility], [address] [place] [address] [address], [place], [place], [id number], [place] tel:[phone] [facility] No Information 0 6-200 6 Doisy Luis. [address] [facility] , [address], [place], [address], [place]. tel:[phone] Family History Family Member Type Diagnosis Age [...]
--- OUTSIDE RECORDS SUMMARY | 2024-11-09 02:26 | XMS_ITS | Clinical Summary ---
Author Organization [employer] [address] Address [address] [place] [address] Care Team Providers Care Bobbin Stripper Name Role Phone Gui Sloan Primary Care Provider Allergies No known active allergies Medications losartan-hydroCH LOROthiazide (HYZAAR) 50-12.5 mg tablet Take 1 Tablet by mouth daily. Active levothyroxine 88 mcg tablet Take 88 mcg by mouth daily tie puller. Active oxyCODONE-acetam inophen (PERCOCET) 10-325 mg Tablet [...] ose Stools. Active L gasseri/B bifidum/B longum ([employer] HEALTH ORAL) Take by mouth. Active calcium [...] be scanned to PACS. us External Provider [facility] DIAGNOSTIC IMAGING ORDERA BLES Final Result from Last 3 Months or Most Recently Relevant to Health Maintenance Insurance Care Teams Bobbin Stripper Relationship Specialty Start Date End Date Gui Sloan DO [address] [facility] [address] [place] [phone] PCP - General Internal Medicine 01/08/20
--- OUTSIDE RECORDS SUMMARY | 2024-11-09 02:26 | XMS_ITS | CONTINUITY OF CARE DOCUMENT ---
Author Name hanny gamino Address Unknown Organization [facility] Address [address] [place] [address] [address] [place] [address] Phone [phone] Care Team Providers Care Kitchen Operator Name Role Phone MAICO SYKES MD Unavailable INSURANCE PROVIDERS Payer name Policy type / Coverage type [facility] libertarian ID [facility] Other [id number]
--- OUTSIDE RECORDS SUMMARY | 2024-11-09 02:26 | XMS_ITS | Clinical Summary ---
Author Organization [facility] Address [address] [place] [address] Care Team Providers Care Student Development Specialist Name Role Phone LutherGui mcclelland Primary Care Provider [phone] Lino Pabon MD Unavailable [phone] Maryam Grey MD Unavailable Allergies Active Allergy Reactions Criticality Noted Date Comments No Known Allergies Other (See comments) Low Reaction: Medications calcium carbonate-vitam in D3 1,500 mg (600mg elemental) -800 unit per tablet Acti ve cholestyramine (QUESTRAN) 4 gram packet 8 Active estradiol (ESTRACE) 1 mg tablet 8 Active loperamide (IMODIUM A-D) 2 mg capsule as needed Active levothyroxine (SYNTHROID) 75 mcg tablet supervisor heading before breakfast 8 Active losartan-hydroC HLOROthiazide (HYZAAR) [...] mouth daily Active L gasseri/B bifidum/B longum ([employer] HEALTH ORAL) Take by mouth daily Active [...] on file 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
[2024-11-09 12:10] VITALS: BP 169/87; PULSE 77; RESP 16; TEMP 36.9; O2SAT 98; BMI 28.2
[2024-11-09] MEDS: LACTATED RINGERS 1,000 ML 30 ML IV CONT (13:26)
--- NOTE | 2024-11-09 13:29 | WPDHPUPDATE1 ---
History and Physical Update Update Date/Time: 11/09/24 13:29 History and Physical has been reviewed, including an updated exam of the patient. There are NO changes in the patient's condition. Risks, benefits, and alternatives have been discussed and questions answered. Patient agrees to proceed with procedure.
--- NOTE | 2024-11-09 13:49 | P.PNAN_ITS ---
Anes - Initial Pre Proc Eval Procedure: Operation Date: 11/09/24 14:00 Proposed Procedures p Excision of Occipital Scalp Cyst - Jeremy Gonsalves MD Date/Time: 11/09/24 13:49 Surgeon: Jeremy Gonslaves MD Pre Op Diagnosis: scalp cyst Patient Data Age: 69 Gender: F Height: 1.57 m Weight: 70 kg Last Vital Signs Temp 36.9 C 11/09/24 12:10 Pulse 77 11/09/24 12:10 Resp 16 11/09/24 12:10 BP 169/87 H 11/09/24 12:10 Pulse Ox 98 11/09/24 12:10 Allergies Allergy/AdvReac Type Severity Reaction Status Date / Time No Known Allergies Allergy Verified 11/09/24 13:09 Home Medications ?Medication ?Instructions ?Recorded ?Confirmed ?Type tizanidine 4 mg capsule 4 mg PO TID 02/01/22 10/27/24 History Lactobacills gasseri-Bifidobac 1 cap PO DAILY 08/06/22 10/27/24 History bifidum,longum 1.5 billion cell capsule ([facility]) calcium carbonate 600 mg PO DAILY 08/06/22 10/27/24 History ergocalciferol (vitamin D2) 1,250 1,250 mcg PO WEEKLY 08/06/22 10/27/24 History mcg (50,000 unit) capsule omeprazole magnesium 20 mg 20 mg PO DAILY 08/06/22 10/27/24 History tablet,delayed release (Prilosec OTC) conjugated estrogens 0.625 mg 1.25 mg PO DAILY 05/08/23 10/27/24 History tablet (Premarin) gabapentin 600 mg tablet 600 mg PO TID 11/14/23 10/27/24 History nortriptyline 25 mg capsule 25 mg PO DAILY #90 caps 11/14/23 10/27/24 Rx atorvastatin 40 mg tablet 40 mg PO DAILY #90 tabs 07/29/24 10/27/24 Rx levothyroxine 75 mcg tablet 75 mcg PO DAILY #90 tabs 07/29/24 11/09/24 Rx morphine 15 mg tablet,extended 15 mg PO BID 10/15/24 11/09/24 History release losartan 50 mg-hydrochlorothiazide See Rx Instructions .Route 10/21/24 10/27/24 Rx 12.5 mg tablet .COMPLEX #30 tabs Patient hx anesthesia problems: none Family hx anesthesia problems: none Results Review: All pre-operative results and documents have been reviewed as part of the pre- operative evaluation. 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 S/P cholecystectomy Family History Family History Mother Diabetes mellitus Depression Hypertension Family history of cardiovascular disease Family history of arthritis Father Family history of mental disorder Sibling Family history of lung cancer Hypertension Kidney malignancy Multiple myeloma Breast cancer Social History Social History Smoking status: Never smoker Alcohol intake: current Alcohol use details: occasionally Substance use: never Substance use type: does not use Do You Feel Safe in your Home?: Yes Lack of Transportation: No Lack of Food: Never True Current Housing: I Have Housing Concerned About Future Housing: No Difficulty Paying Gas/Electric Bills: No Difficulty Paying for Meds: No Currently Unemployed: No Education: High School Diploma/GED Difficulty w/ Childcare or Family Care: No Living arrangements: with family Additional living arrangements comments: [place] Occupation/Education: occupation Gender identity (if verbalized by the patient): Female Sexual Orientation (if Verbalized by the Patient): Straight or Heterosexual Spiritual care concerns: No Agree to blood products: Yes Anes - Eval Final PreProcedure Day of Procedure 11/09/24 13:49 Patient weight: overweight Heart: regular rate and rhythm Lungs: clear to auscultation Airway: Mallampati scale class II Neurological: alert and oriented Last oral intake: >/= 8 hours ASA classification: III Emergent: no Anesthetic plan: proceed Anesthesia type and monitoring: general GIVS and LMA and standard monitoring Other findings: givs vs lma Results Review: All pre-operative results and documents have been reviewed as part of the pre- operative evaluation. Informed Consent: The patient's anesthetic plan and its attendant risks and benefits were discussed with the patient/family/POA. Questions were solicited and answers provided to the satisfaction of the patient/family/POA.
[2024-11-09] MEDS: ceFAZolin 2 GM/D5W 50 ML 2 GM/50 ML BAG IVPB (14:45)
[2024-11-09] MEDS: BUPivacaine HCL 0.5% 10 ML AMP INFILTRATE (15:13)
[2024-11-09] MEDS: LIDO 1%/EPINEPHRINE 1:100,000 20 ML VIAL 10 ML INFILTRATE (15:14)
--- NOTE | 2024-11-09 15:18 | S_PTH ---
PATIENT: Mally Thomas LOC: [facility] U#:[id number] AGE/SX: 69/F ROOM: RE11/09/[address]: Jeremy Gonsalves MD : 1955 BED: DIS: 11/09/2024 SPEC #: [id number] RECD: 11/10/24 07:43 STATUS: BOBBI REQ #: [id number] KENNY: 11/09/24 15:[address]: Jeremy Gonsalves DEPT: [facility] Surgical RECD BY: Martin Guzman ENTERED: 11/10/24 07:43 SP TYPE: Surgical OTHR DR: Brigida Wells APRN Tissues: A - Cyst Procedures: Hematoxylin and Eosin Stain Gross and Microscopic Level 4
[2024-11-09 15:36] VITALS: BP 135/76; PULSE 75; RESP 12
--- NOTE | 2024-11-09 15:39 | P.OP_ITS ---
Procedure Note - Detailed Date of Procedure 11/09/24 Pre-op Diagnosis Enlarging occipital scalp cyst Post-op Diagnosis Same Procedure Performed Excision of simple scalp cyst with 2cm simple wound closure. Surgeon Jeremy Gonsalves MD [employer] [facility]REST Anesthesia MAC Indications Patient is a 69-year-old female presented for evaluation complaining of enlarging scalp mass. In the office it was palpated and appeared to be most likely a benign scalp cyst. She now presents for excision of the cyst. Findings Patient had a well circumscribed thin walled cyst containing sebaceous material. There is no pus noted. The cyst measured approximately 1.5x1cm. Description of Procedure After informed consent was obtained patient brought to the operating room she was placed in the supine position and placed under IV sedation. She was then turned to the left lateral decubitus position with lateral positioners in place to keep her on her side. Pressure points were well padded. Time-out was then performed correctly identifying the patient as well as procedure to be performed. Site marking was verified she was given perioperative IV antibiotics. Small amount of hair around the cyst was then cut away. Sterile lubricating gel was then used to hold back the hair and then the area was prepped with Betadine spray. She was then draped in usual sterile fashion. 1% lidocaine mixed with 0.5% Marcaine with some epinephrine was then injected around the cyst and the skin overlying the cyst for local anesthetic effect. I then made a vertical elliptical incision excising away a small amount of redundant scalp skin with the cyst wall. Dissection carried deeply down through the dermis of the skin. The cyst wall was ruptured producing some sebaceous material within the cyst but no pus. With sharp iris scissors I completely excised out the cyst wall from the cavity along with the attached ellipse of skin. The cyst measured approximately 1.5x1cm. I then used a small curette to remove any residual pieces the cyst wall from the cavity. I then irrigated the incision sterile saline solution hemostasis was achieved electrocautery. I then fulgurated the inside of the wound with electrocautery. The wound was then closed with a simple running and locking 3-0 Prolene suture. The length of the closure was 2cm. Incision was then cleaned and then antibiotic ointment was applied to the incision. The patient tolerated the procedure well no complications. All sponges, needles, and instrument counts were correct at the end procedure. EBL was _5__cc. The patient was awakened and taken to recovery in stable and satisfactory condition. Implants None Estimated Blood Loss 5 Drains No Packing No Pathology Yes (Cyst wall and attached ellipse of skin sent to pathology) Complications No immediate complications Condition Stable Disposition PACU [facility] Billing Surgery - Charge Forward: Surgery Billing
[2024-11-09 16:05] VITALS: BP 154/69; PULSE 67
[2024-11-09 16:30] VITALS: BP 148/68; PULSE 59
== END 2024-11-09 16:40 | disposition home or self-care (01) ==
PROVIDERS: PCP Nurse Practitioner Family; Visit Provider Surgery
PROC: (CPT 11422; principal; 2024-11-09 14:00)
DX: D23.4 Other benign neoplasm of skin of scalp and neck (principal)
CPT/HCPCS: 11422; 88305; J0690; J1100; J2003; J2004; J2250; J2405; J2704; J3010; J7120

== ENCOUNTER 2024-12-03 14:36 | Outpatient (CLI) | payer MEDICARE, SELFPAY ==
--- NOTE | ~2024-12-03 | DEXA_ITS ---
Bone Density Report Name: ANGELA HICKS Age: 69 Sex: Female Ethnicity: White Date of : 1955 Indication: postmenopausal; screening for osteoporosis; height loss; hysterectomy; Referring Provider: Fausto, Nicole Study: Bone densitometry was performed. Exam Date: December 03, 2024 Accession number: [id number] Bone Density: Region BMD T-score Z-score Classification AP Spine(L1-L4) 1.338 2.6 4.6 Normal Femoral Neck (Left) 0.772 -0.7 1.0 Normal Total Hip (Left) 1.008 0.5 1.9 Normal Femoral Neck (Right) 0.768 -0.7 0.9 Normal Total Hip (Right) 1.020 0.6 2.0 Normal Femoral Neck Mean 0.770 -0.7 1.0 Normal Total Hip Mean 1.014 0.6 2.0 Normal World Health Organization criteria for BMD impression classify patients as: Normal (T-score at or above -1.0), Osteopenia (T-score between -1.0 and -2.5), or Osteoporosis (T-score at or below -2.5). 10-year Fracture Risk: FRAX not reported because: All T-scores for Spine Total, Hip Total, Femoral Neck at or above -1.0 Clinical Information Provided by Patient: Has used the following medications: HRT (i.e. estrogen/hormone therapy), Vitamin D, Calcium Has the following medical conditions: Hysterectomy Patient maximum height was 62 Menopause Age: 52 No regular weight bearing exercise Does not regularly consume dairy products Drinks caffeinated beverages Onset of menses at age 16 Number of children 1 Missed period for more than 6 months in a row Impression: The patient has normal bone mass. Discussion: BONE DENSITY IS ABOVE THE MINIMUM DESIRABLE LEVEL AT ALL SKELETAL SITES TESTED. This patient?s bone mineral density is above the minimum desirable level (T-score -1.0 or better) at all sites measured. The patient should follow a healthful lifestyle (good nutrition with adequate calcium and vitamin D, and appropriate weight-bearing exercise). Follow-Up: Consider repeating this study in 5 years or sooner if there is some new clinical indication. Reported by: FAY on 12/03/2024 3:07:00 PM. Reviewed, dictated and finalized at location A.
--- OUTSIDE RECORDS SUMMARY | 2024-12-03 14:49 | XMS_ITS | Clinical Summary ---
Author Organization [facility] Address [address] [place] [address] Care Team Providers Care Electronic Publishing Specialist Name Role Phone Unavailable Primary Care Provider Unavailabl e Social History Tobacco Use Types Packs/Day Years Used Date Smoking Tobacco: Never Assessed Comments Unknown Sex and Gender Information Value Date Recorded Sex Assigned at Not on file Legal Sex Female 7:41 PM CDT Gender Identity Not on file Sexual Orientation Not on file Plan of Treatment Health Maintenance Due Date Last Done Comments Colorectal Cancer Screening Colonoscopy (10 Years) 1955 Hepatitis C 1975 Mammogram Screening 1997 Pneumococcal Vaccine: 50+ Years (1 of 1 - PCV) 2007 Dexa Scan (General) 2022 COVID-19 Vaccine ( - 2023-2 5 season) 2024 DTaP, Tdap and Td Vaccines ( 3 - Td or Tdap) 11/08/2025 11/09/2015, 09/25/2005, 06/16/2002 RSV Immunization or 60+ Years (1 - 1-dose 75+ series) 01/02/2032 Zoster Vaccines Completed 11/27/2017, 09/04/2017, 05/03/2017 Meningococcal B Vaccine Aged Out No l onger eligible based on patient's age to complete this topic Meningococcal Vaccine Aged Out No nabeel viktoriya eligible based on patient's age to complete this topic RSV Immunizations Under 20 Months Aged Out No longer eligible b ased on patient's age to complete this topic
--- OUTSIDE RECORDS SUMMARY | 2024-12-03 14:49 | XMS_ITS | Referral Summary ---
Author Organization [facility] Address [address] [place] [address] Care Team Providers Care Extension Course Coordinator Name Role Phone LutherOrvilleparvin GERONIMO Primary Care Provider [phone] Lino Pabon MD Unavailable [phone] Maryam Grey MD Unavailable Allergies Active Allergy Reactions Criticality Noted Date Comments No Known Allergies Other (See comments) Low Reaction: Medications calcium carbonate-vitam in D3 1,500 mg (600mg elemental) -800 unit per tablet Acti ve cholestyramine (QUESTRAN) 4 gram packet 8 Active estradiol (ESTRACE) 1 mg tablet 8 Active loperamide (IMODIUM A-D) 2 mg capsule as needed Active levothyroxine (SYNTHROID) 75 mcg 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 [id number] [place] [address] Care Teams Extension Course Coordinator Relationship Specialty Start Date End Date Gui Sloan DO PCP - General Internal Medicine 10/17/20 Lino Pabon MD [id number] [place] [address] Surgeon Colon and Rectal Surgery 02/09/21 Maryam Grey MD [id number] [place] [address] Tie Cutter Gastroenterology 02/09/21
--- OUTSIDE RECORDS SUMMARY | 2024-12-03 14:49 | XMS_ITS | Clinical Summary ---
Author Organization [facility] Address [address] [place] [address] Care Team Providers Care Sap Hana Developer Name Role Phone Gui Sloan Primary Care Provider Allergies No known active allergies Medications losartan-hydroCH LOROthiazide (HYZAAR) 50-12.5 mg tablet Take 1 Tablet by mouth daily. Active levothyroxine 88 mcg tablet Take 88 mcg by mouth daily environmental health technologist. Active oxyCODONE-acetam inophen (PERCOCET) 10-325 mg Tablet [...] ose Stools. Active L gasseri/B bifidum/B longum ([employer] HE[facility] ORAL) Take by mouth. Active calcium [...] (1 of 2) 2007 INFLUENZA VACCINE (#1) 2025 OSTEOPOROSIS SCREENING 01/20/2025 01/21/2020 RSV VACCINE (60+ [...] be scanned to PACS. us External Provider [facility] DIAGNOSTIC IMAGING ORDERA BLES Final Result from Last 3 Months or Most Recently Relevant to Health Maintenance Insurance Care Teams Sap Hana Developer Relationship Specialty Start Date End Date Gui Sloan DO [address] [facility] [address] [place] [id number] PCP - General Internal Medicine 01/08/20
--- OUTSIDE RECORDS SUMMARY | 2024-12-03 14:49 | XMS_ITS | Clinical Summary ---
Author Organization [facility] Address [address] [place] [address] Care Team Providers Care Stock Sheets Cleaner Inspector Name Role Phone LutherGui Primary Care Provider [phone] Lino Pabon MD Unavailable [phone] Maryam Grey MD Unavailable [phone] Allergies Active Allergy Reactions Criticality Noted Date Comments No Known Allergies Other (See comments) Low Reaction: Medications calcium carbonate-vitam in D3 1,500 mg (600mg elemental) -800 unit per tablet Acti ve cholestyramine (QUESTRAN) 4 gram packet 8 Active estradiol (ESTRACE) 1 mg tablet 8 Active loperamide (IMODIUM A-D) 2 mg capsule as needed Active levothyroxine (SYNTHROID) 75 mcg 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 8 Active losartan-hydroC HLOROthiazide (HYZAAR) [...] mouth daily Active L gasseri/B bifidum/B longum ([employer] [facility] ORAL) Take by mouth daily Active [...] on file 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
--- OUTSIDE RECORDS SUMMARY | 2024-12-03 14:49 | XMS_ITS | Continuity of Care Document ---
Author Organization [facility] Address [address] [place] [address] [address] [place] [address] Phone Care Team Providers Care Corporate Development Analyst Name Role Phone Luis Lynch Unavailable Unavailable Advance Directives Directive Yes / No Effective Date File Name No Information Encounters Encounter Description Practice Location Reason(s) For Visit Diagnoses Date Provider Providers Copied on Encounter [facility], [address] [place] [address] [address], [place], [place], [id number], [place] tel:[phone] [facility] No Information 0 [phone] Doisy Luis. [address] [facility] , [address], [place], [address], [place]. tel:[phone] Family History Family Member Type Diagnosis Age At Onset No Information Payers Payer name Insurance type Covered constitution party ID Authoriza tion(s) No Information Social [...]
== END 2024-12-03 14:37 | disposition home or self-care (01) ==
PROVIDERS: Visit Provider Nurse Practitioner
DX: Z78.0 Asymptomatic menopausal state (principal)
CPT/HCPCS: 77080

== ENCOUNTER 2025-03-10 07:17 | Outpatient (CLI) | payer MEDICARE, SELFPAY ==
--- NOTE | ~2025-03-10 | US_ITS ---
ULTRASOUND ABDOMEN LIMITED (RIGHT UPPER QUADRANT) Clinical History: R74.8 - Abnormal levels of other serum enzymes Comparison: None Technique: Right upper quadrant sonography Findings: Liver: Poorly seen. Normal size. Echogenic. No intrahepatic biliary ductal dilatation. Common Duct: Normal caliber. 4 mm. Gallbladder: Removed. Pancreas: Obscured by bowel gas. Right kidney: Unremarkable. Retrohepatic IVC: Unremarkable. IMPRESSION: 1. Probable hepatic steatosis and/or hepatocellular disease. Reviewed, dictated and finalized at location R.
== END 2025-03-10 07:18 | disposition home or self-care (01) ==
LOC: MICIMG 07:18
PROVIDERS: PCP Nurse Practitioner Family; Visit Provider Nurse Practitioner Family
DX: R74.8 Abnormal levels of other serum enzymes (principal); Z90.49 Acquired absence of other specified parts of digestive tract
CPT/HCPCS: 76705